=== PATIENT | female | born 1985 | race Caucasian/White ===

== ENCOUNTER 2017-12-22 21:07 | Emergency (ER) | payer MEDICAID ==
[~2017-12-22] VITALS: Ht 154.9 cm; Wt 57.6 kg
[2017-12-22 21:18] VITALS: BP_SYST 117
[2017-12-22 21:37] LABS: BILIRUBIN,URINE NEGATIVE (NEGATIVE); BLOOD, URINE 1+ (NEGATIVE); CLARITY/URINE HAZY (CLEAR); COLOR,URINE YELLOW (YELLOW); GLUCOSE,URINE NEGATIVE (NEGATIVE); KETONES,URINE NEGATIVE (NEGATIVE); LEUKOCYTE ESTERASE ,URINE 2+ (NEGATIVE); NITRITE, URINE POSITIVE (NEGATIVE); PROTEIN URINE NEGATIVE (NEGATIVE); UROBILINOGEN,URINE 0.2 (0.2-1.0)
[2017-12-22 21:43] LABS: BACTERIA,URINE MODERATE /HPF (None Seen); WBC,URINE 20-50 /HPF (0-3)
[2017-12-22 21:44] LABS: MUCUS,URINE None Seen /LPF (None Seen)
[2017-12-22 22:18] VITALS: BP_SYST 112
== END 2017-12-22 22:21 | disposition home or self-care (01) ==
LOC: SED 21:07
DX: N39.0 Urinary tract infection, site not specified (principal); J06.9 Acute upper respiratory infection, unspecified; Z88.0 Allergy status to penicillin
CPT/HCPCS: 81000-TC; 81025; 87086; 87186-TC; 99284

== ENCOUNTER 2018-02-20 22:21 | Emergency (ER) | payer MEDICAID ==
[~2018-02-20] VITALS: Ht 154.9 cm; Wt 58.5 kg
[2018-02-20 22:42] VITALS: BP_SYST 110
--- NOTE | 2018-02-20 23:01 | NUR ---
Patient to ER bed 08 to gown for evaluation. Side rails up.
--- NOTE | 2018-02-20 23:02 | NUR ---
ER at bedside examining patient.
--- NOTE | 2018-02-20 23:03 | NUR ---
Patient complaining of right ear pain for last 2 days. Reports taking Tylenol with no improvement. Denies N/V/D. Pain 10/17. No other complaints/injuries per patient or as noted. Will continue to monitor.
--- NOTE | 2018-02-20 23:30 | NUR ---
Patient given written and verbal discharge instructions and verbalizes understanding. ER MD discussed with patient the results and treatment provided. Patient in stable condition. Rx of zpak, tylenol and otic drops given. Patient educated on pain management and to follow up with PMD. Pain Scale 0/10. Opportunity for questions provided and answered. Medication side effect fact sheet provided.
[2018-02-20 23:35] VITALS: BP_SYST 110
== END 2018-02-20 23:35 | disposition home or self-care (01) ==
LOC: SED 22:21
DX: H60.91 Unspecified otitis externa, right ear (principal); Z88.0 Allergy status to penicillin
CPT/HCPCS: 99283

== ENCOUNTER 2018-04-24 15:12 | Emergency (ER) | payer MEDICAID ==
[~2018-04-24] VITALS: Ht 157.5 cm; Wt 59.0 kg
[2018-04-24 15:26] VITALS: BP_SYST 125
--- NOTE | 2018-04-24 15:40 | NUR ---
Patient verbalizes that she is unable to stay. LWBS.
== END 2018-04-24 15:40 | disposition left against medical advice (07) ==
LOC: SED 15:12
DX: H92.02 Otalgia, left ear (principal); Z53.21 Procedure and treatment not carried out due to patient leaving prior to being seen by health care provider

== ENCOUNTER 2018-04-25 17:16 | Emergency (ER) | payer MEDICAID ==
[~2018-04-25] VITALS: Ht 157.5 cm; Wt 57.6 kg
[2018-04-25 17:26] VITALS: BP_SYST 114
--- NOTE | 2018-04-25 17:32 | NUR ---
Pt brought by self,accompanied by children, A&Ox4, pt presents to ER with bilateral earache and discomfort, pt is afebrile, VS WNL, respirations even and unlabored, cap refill <3.
--- NOTE | 2018-04-25 17:33 | NUR ---
Sera Anne [employer] performing MSE at triage room
[2018-04-25 18:00] VITALS: BP_SYST 114
--- NOTE | 2018-04-25 18:01 | NUR ---
Patient given written and verbal discharge instructions and verbalizes understanding. ER MD discussed with patient the results and treatment provided. Patient in stable condition. ID arm band removed. Rx of Clindmaycin given. Patient educated on pain management and to follow up with PMD. Pain Scale 0/10 tolerable for patient . Opportunity for questions provided and answered. Medication side effect fact sheet provided.
== END 2018-04-25 18:01 | disposition home or self-care (01) ==
LOC: SED 17:16
DX: H66.92 Otitis media, unspecified, left ear (principal); Z88.0 Allergy status to penicillin
CPT/HCPCS: 99283